=== PATIENT | male | born 1940 | race Caucasian/White ===

== ENCOUNTER → 2017-02-21 | Outpatient (CLI) | payer MEDICARE ==
[2017-02-21 10:33] LABS: CHLORIDE 107 MEQ/L (98-107); SODIUM (NA) 143 MEQ/L (136-145)
[2017-02-21 10:37] LABS: ANION GAP 9 MEQ/L (5-15); BICARBONATE 26.8 MEQ/L (21.0-32.0); GLUCOSE,FASTING 94 MG/DL (74-99)
[2017-02-21 10:38] LABS: BLOOD UREA NITROGEN 23 MG/DL (7-18)
[2017-02-21 10:40] LABS: ALT (GPT) 32 U/L (12-78); AST (GOT) 24 U/L (15-37)
[2017-02-21 10:41] LABS: GLOMERULAR FILTRATION RATE 65 ML/MIN (>89)
[2017-02-21 10:42] LABS: TOTAL BILIRUBIN ADULT 0.6 MG/DL (0.2-1.0)
[2017-02-21 10:43] LABS: ALKALINE PHOSPHATASE 59 U/L (45-117)
[2017-02-21 13:37] LABS: MEAN CELL VOLUME 85.2 FL (80.0-100.0); MEAN CORPUSCULAR HEMOGLOBIN 28.4 PG (27.0-34.0); MEAN CORPUSCULAR HGB CONC 33.4 % (32.0-36.0); PLATELET COUNT 224 TH/MM3 (150-450); RED BLOOD COUNT 4.81 MIL/MM3 (4.50-5.90); REVIEW FLAG FINAL; WHITE BLOOD COUNT 8.7 TH/MM3 (4.0-11.0)
== END ==
LOC: PLAB 08:56
PROVIDERS: ATTEND Family Medicine
DX: I12.9 Hypertensive chronic kidney disease with stage 1 through stage 4 chronic kidney disease, or unspecified chronic kidney disease (principal); N18.3 Chronic kidney disease, stage 3 (moderate)
CPT/HCPCS: 36415; 80053; 85027

== ENCOUNTER → 2017-08-04 | Outpatient (CLI) | payer MEDICARE ==
[2017-08-04 13:31] LABS: AUTOMATED NEUTROPHIL # 5.9 TH/MM3 (1.8-7.7); BASOPHIL # 0.1 TH/MM3 (0-0.2); BASOPHIL % 0.6 % (0.0-2.0); EOSINOPHIL # 0.3 TH/MM3 (0-0.4); EOSINOPHIL % 2.6 % (0.0-4.0); HEMATOCRIT 43.3 % (39.0-51.0); LYMPH % 27.2 % (9.0-44.0); LYMPHOCYTE # 2.8 TH/MM3 (1.0-4.8); MEAN CELL VOLUME 85.9 FL (80.0-100.0); MEAN CORPUSCULAR HGB CONC 33.7 % (32.0-36.0); MONO % 12.5 % (0.0-8.0); NEUT % 57.1 % (16.0-70.0); PLATELET COUNT 210 TH/MM3 (150-450); RED BLOOD COUNT 5.05 MIL/MM3 (4.50-5.90); RED CELL DISTRIBUTION WIDTH 15.4 % (11.6-17.2); WHITE BLOOD COUNT 10.3 TH/MM3 (4.0-11.0)
[2017-08-04 13:34] LABS: ANION GAP 5 MEQ/L (5-15); AST (GOT) 18 U/L (15-37); BICARBONATE 27.2 MEQ/L (21.0-32.0); BLOOD UREA NITROGEN 24 MG/DL (7-18); CHLORIDE 107 MEQ/L (98-107); GLOMERULAR FILTRATION RATE 58 ML/MIN (>89); GLUCOSE,FASTING 98 MG/DL (74-99); POTASSIUM 4.2 MEQ/L (3.5-5.1); SODIUM (NA) 139 MEQ/L (136-145)
[2017-08-04 13:36] LABS: ALKALINE PHOSPHATASE 76 U/L (45-117); ALT (GPT) 23 U/L (12-78); HDL CHOLESTEROL 30.8 MG/DL (40.0-60.0); TOTAL BILIRUBIN ADULT 0.4 MG/DL (0.2-1.0)
[2017-08-04 13:39] LABS: HEMO FLAGS AUTO DIFF
[2017-08-04 14:28] LABS: BANDS 5 % (0-6); BASOPHILS 1 % (0-2); EOSINOPHILS 1 % (0-4); METAMYELOCYTES 1 % (0-1); NEUTROPHIL # MANUAL DIFF 5.8 TH/MM3 (1.8-7.7); PLATELET ESTIMATE SMEAR NORMAL (NORMAL); PLATELET MORPHOLOGY NORMAL (NORMAL); POLYS (SEG NEUTROPHILS) 50 % (16-70); SCAN/DIFF FINAL DIFF MANUAL; WBC DIFF SAMPLE 100
== END ==
LOC: PLAB 09:02
PROVIDERS: ATTEND Family Medicine
DX: I10 Essential (primary) hypertension (principal); E78.5 Hyperlipidemia, unspecified
CPT/HCPCS: 36415; 80053; 80061; 85007; 85027

== ENCOUNTER → 2017-10-04 | Outpatient (CLI) | payer MEDICARE ==
[2017-10-04 09:30] LABS: BACTERIA, URINE RARE /hpf; BLOOD, URINE NEG (NEG); GLUCOSE,URINE NEG (NEG); HYALINE CAST, URINE 4 /lpf (RARE); KETONE, URINE NEG (NEG); MUCUS URINE FEW /lpf (OCC); NITRITE,URINE NEG (NEG); PH, URINE 5.5 (5.0-8.5); SQUAMOUS EPITHELIAL CELL URINE <1 /hpf (0-5); URINE COLOR YELLOW (YELLW/STRAW)
[2017-10-04 10:10] LABS: BICARBONATE 29.1 MEQ/L (21.0-32.0); POTASSIUM 4.7 MEQ/L (3.5-5.1)
== END ==
LOC: PLAB 07:34
PROVIDERS: ATTEND Family Medicine
DX: N18.3 Chronic kidney disease, stage 3 (moderate) (principal)
CPT/HCPCS: 36415; 80048; 81001; 82306; 82570; 83970; 84156

== ENCOUNTER → 2017-12-05 | Outpatient (CLI) | payer MEDICARE ==
[2017-12-05 11:13] LABS: COMPLEMENT C3 124 MG/DL (90-180); COMPLEMENT C4 33 MG/DL (10-40)
[2017-12-05 11:15] LABS: ALBUMIN 4.1 GM/DL (3.4-5.0); BICARBONATE 26.9 MEQ/L (21.0-32.0); CALCIUM 9.7 MG/DL (8.5-10.1); CREATININE 1.16 MG/DL (0.60-1.30); PHOSPHORUS 3.2 MG/DL (2.5-4.9)
[2017-12-05 11:18] LABS: BACTERIA, URINE OCC /hpf; BILIRUBIN, URINE NEG (NEG); BLOOD, URINE NEG (NEG); GLUCOSE,URINE NEG (NEG); HYALINE CAST, URINE 3 /lpf (RARE); KETONE, URINE NEG (NEG); MUCUS URINE FEW /lpf (OCC); NITRITE,URINE NEG (NEG); PH, URINE 5.5 (5.0-8.5); SQUAMOUS EPITHELIAL CELL URINE <1 /hpf (0-5); URINE COLOR YELLOW (YELLW/STRAW); URINE LEUKOCYTE ESTERASE SMALL (NEG)
[2017-12-05 11:20] LABS: BASOPHIL % 0.6 % (0.0-2.0); EOSINOPHIL # 0.2 TH/MM3 (0-0.4); EOSINOPHIL % 1.9 % (0.0-4.0); HEMATOCRIT 42.5 % (39.0-51.0); HEMOGLOBIN 14.6 GM/DL (13.0-17.0); LYMPH % 24.5 % (9.0-44.0); LYMPHOCYTE # 2.1 TH/MM3 (1.0-4.8); MEAN CELL VOLUME 85.1 FL (80.0-100.0); MEAN CORPUSCULAR HEMOGLOBIN 29.3 PG (27.0-34.0); MEAN CORPUSCULAR HGB CONC 34.4 % (32.0-36.0); MEAN PLATELET VOLUME 8.9 FL (7.0-11.0); MONO % 13.5 % (0.0-8.0); MONOCYTE # 1.1 TH/MM3 (0-0.9); NEUT % 59.5 % (16.0-70.0); PLATELET COUNT 212 TH/MM3 (150-450); RED BLOOD COUNT 4.99 MIL/MM3 (4.50-5.90); RED CELL DISTRIBUTION WIDTH 15.3 % (11.6-17.2); WHITE BLOOD COUNT 8.4 TH/MM3 (4.0-11.0)
[2017-12-05 17:47] LABS: KAPPA LAMBDA RATIO 2.11 (1.57-3.93)
[2017-12-05 21:18] LABS: ALB/GLOB RATIO (SPE) 1.54 (1.39-2.23)
[2017-12-07 23:52] LABS: KAPPA/LAMBDA FREE 1.65 (0.26-1.65)
== END ==
LOC: PLAB 12-01 07:50
PROVIDERS: ATTEND Internal Medicine Nephrology
DX: N18.2 Chronic kidney disease, stage 2 (mild) (principal)
CPT/HCPCS: 80069; 81001; 82570; 82575; 82784; 83883; 83970; 84156; 84157; 84165; 85025; 86160; 86162; 86334; 86335; 86803

== ENCOUNTER → 2017-12-26 | Outpatient (CLI) | payer MEDICARE ==
[2017-12-26 12:27] LABS: BILIRUBIN, URINE NEG (NEG); BLOOD, URINE TRACE (NEG); GLUCOSE,URINE NEG (NEG); KETONE, URINE NEG (NEG); MUCUS URINE FEW /lpf (OCC); NITRITE,URINE NEG (NEG); PH, URINE 5.5 (5.0-8.5); SQUAMOUS EPITHELIAL CELL URINE <1 /hpf (0-5); URINE COLOR YELLOW (YELLW/STRAW); URINE LEUKOCYTE ESTERASE SMALL (NEG)
== END ==
LOC: PLAB 10:34
PROVIDERS: ATTEND Family Medicine
DX: R30.0 Dysuria (principal)
CPT/HCPCS: 81001; 87086

== ENCOUNTER → 2018-01-10 | Outpatient (CLI) | payer MEDICARE ==
[2018-01-10 11:27] LABS: AUTOMATED NEUTROPHIL # 6.7 TH/MM3 (1.8-7.7); BASOPHIL % 0.3 % (0.0-2.0); EOSINOPHIL # 0.2 TH/MM3 (0-0.4); EOSINOPHIL % 1.5 % (0.0-4.0); HEMATOCRIT 41.5 % (39.0-51.0); LYMPH % 23.1 % (9.0-44.0); LYMPHOCYTE # 2.5 TH/MM3 (1.0-4.8); MEAN CELL VOLUME 84.8 FL (80.0-100.0); MEAN CORPUSCULAR HEMOGLOBIN 28.6 PG (27.0-34.0); MEAN CORPUSCULAR HGB CONC 33.7 % (32.0-36.0); MEAN PLATELET VOLUME 9.1 FL (7.0-11.0); MONO % 12.3 % (0.0-8.0); MONOCYTE # 1.3 TH/MM3 (0-0.9); NEUT % 62.8 % (16.0-70.0); PLATELET COUNT 234 TH/MM3 (150-450); WHITE BLOOD COUNT 10.6 TH/MM3 (4.0-11.0)
[2018-01-10 11:30] LABS: BACTERIA, URINE RARE /hpf; BILIRUBIN, URINE NEG (NEG); BLOOD, URINE NEG (NEG); GLUCOSE,URINE NEG (NEG); KETONE, URINE NEG (NEG); NITRITE,URINE NEG (NEG); PH, URINE 5.5 (5.0-8.5); URINE COLOR YELLOW (YELLW/STRAW); URINE LEUKOCYTE ESTERASE SMALL (NEG)
[2018-01-10 11:36] LABS: ALBUMIN 3.7 GM/DL (3.4-5.0); AST (GOT) 23 U/L (15-37); BICARBONATE 28.2 MEQ/L (21.0-32.0); BLOOD UREA NITROGEN 28 MG/DL (7-18); CALCIUM 9.1 MG/DL (8.5-10.1); CHLORIDE 103 MEQ/L (98-107); CREATININE 1.24 MG/DL (0.60-1.30); GLOMERULAR FILTRATION RATE 56 ML/MIN (>89); GLUCOSE,FASTING 91 MG/DL (74-99); SODIUM (NA) 141 MEQ/L (136-145)
[2018-01-10 11:37] LABS: CHOLESTEROL 144 MG/DL (120-200)
[2018-01-10 11:40] LABS: ALKALINE PHOSPHATASE 72 U/L (45-117); ALT (GPT) 22 U/L (12-78); CHOLESTEROL/ HDL RATIO 4.16 RATIO; HDL CHOLESTEROL 34.6 MG/DL (40.0-60.0); LDL CHOLESTEROL 79 MG/DL (0-99); LDL CHOLESTEROL DIRECT 88 MG/DL (0-99); TOTAL BILIRUBIN ADULT 0.5 MG/DL (0.2-1.0); TOTAL PROTEIN 7.7 GM/DL (6.4-8.2); TRIGLYCERIDES 154 MG/DL (42-150)
[2018-01-10 16:34] LABS: HEMOGLOBIN A1C 5.3 % (4.3-6.0)
== END ==
LOC: PLAB 08:06
PROVIDERS: ATTEND Physician Assistant
DX: I12.9 Hypertensive chronic kidney disease with stage 1 through stage 4 chronic kidney disease, or unspecified chronic kidney disease (principal); N18.3 Chronic kidney disease, stage 3 (moderate); E78.5 Hyperlipidemia, unspecified; R73.09 Other abnormal glucose; R39.9 Unspecified symptoms and signs involving the genitourinary system
CPT/HCPCS: 80053; 80061; 81001; 82306; 83036; 83721; 83970; 84100; 85025; 87086

== ENCOUNTER 2018-06-27 07:03 | Inpatient (IN) ==
[2018-06-27] MEDS ORDERED: Chlorhexidine Gluconate 2% 1 Pack (2 Cloths) TOPICAL SCH (07:30)
[2018-06-27] MEDS ORDERED: Metoprolol Tartrate 25 MG Tablet PO SCH (07:30)
[2018-06-27] MEDS ORDERED: Sodium Chlor 0.9% Inj 500 ML IV.SIG SCH (08:00)
--- NOTE | 2018-06-27 08:38 | P.PNVS ---
- Pre-operative Note Planned Procedure: EVAR Interval History: Pt has been feeling well, no changes that would preclude OR. Labs: Hct 44 plt 232 INR 1.1 creatinine 1.2 Blood: T&S Imaging: CTA reviewed Orders: NPO Ancef 2g IV OCTOR Post-operative Destination: PACU, then CPCU Operative site marked: No Consent: Informed consent has been obtained from Filomena Azevedo. I have explained the procedure in detail and discussed the risks, benefits, and potential complications. All questions have been answered. Patient Contact Information: ([place]) [phone]
[2018-06-27] MEDS ORDERED: Phenylephrine/NS 1000 MCG/10ML Syringe IV.PUSH ONE (08:47)
[2018-06-27] MEDS ORDERED: Lidocaine PF 1% Inj 5 ML Syringe INFILTRATN ONE (08:47)
[2018-06-27] MEDS ORDERED: Normosol-R pH 7.4 Inj 1,000 ML IV.CONT ONE (08:47)
[2018-06-27] MEDS: Heparin 10,000 UNITS/10 ML Vial (for IV use) ONE ×2 (09:36→09:40)
[2018-06-27] MEDS: Protamine Sulfate Inj 50 MG/5 ML Vial ONE ×2 (09:37→09:41)
[2018-06-27] MEDS: Heparin/NS PF Inj 500 ML ONE ×2 (09:37→10:02)
[2018-06-27] MEDS ORDERED: Sugammadex Inj 200 MG/2 ML Vial IV.PUSH ONE (10:14)
[2018-06-27] MEDS ORDERED: Iohexol 300 MG/ML 50 ML Vial (for Rad Diag) IVCONTRAST ONE ×2 (10:18→10:20)
--- NOTE | 2018-06-27 10:33 | P.OP ---
- Preoperative Diagnosis (1) AAA (abdominal aortic aneurysm) without rupture - Postoperative Diagnosis (1) AAA (abdominal aortic aneurysm) without rupture Date of procedure: 06/27/18 Procedure: 1. 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
[2018-06-27] MEDS ORDERED: Bisacodyl 10 MG Supp RECTAL PRN (10:34)
[2018-06-27] MEDS ORDERED: fentaNYL Citrate Inj 100 MCG/2 ML Ampul ONE (10:55)
[2018-06-27] MEDS ORDERED: *morphine SULFATE 4 MG/ML PERIprocedure ONLY ONE (11:04)
--- NOTE | 2018-06-27 13:14 | MP ---
cc: Bao Jose MD DATE OF OPERATION: 06/27/2018 PREOPERATIVE DIAGNOSIS: Abdominal aortic aneurysm. POSTOPERATIVE DIAGNOSIS: Abdominal aortic aneurysm. PROCEDURE PERFORMED: 1. Endovascular abdominal aortic aneurysm exclusion. 2. Bilateral common femoral artery access (right 18 Panamanian, left 16 Panamanian). ATTENDING SURGEON: Bao Jose MD ANESTHESIA: General. 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 He is taken to the operating room for endovascular repair. DESCRIPTION OF PROCEDURE: Informed consent was obtained. The patient was taken to the operating room and placed supine on the operating table. An appropriate timeout was taken to ensure the patient's identity, the operative site and planned procedure. Two grams of Ancef were administered prior to skin incision and will be discontinued after a single preoperative dose. Everyone in the room agreed with the timeout and we proceeded. He was prepped from his nipples to the knees. A 21 gauge micropuncture needle was used to access both common femoral arteries. This was exchanged using the Seldinger technique for a micropuncture sheath, through which a 0.05 STORQ wire was introduced. The micropuncture sheath was exchanged for a 5 Panamanian sheath, which was used to dilate the skin, subcutaneous tract and arteriotomy. Two Perclose ProGlide sutures were inserted into each groin and tagged. A short 8 Panamanian sheath was placed on the right and a long 8 Panamanian sheath was placed on the left. The patient was systemically heparinized and throughout the remainder of the case, the ACT was confirmed to be greater than 250. Both STORQ wires were advanced into the proximal descending thoracic aorta. Into the left-hand STORQ wire, a marker flush catheter was placed. Into the right-hand STORQ wire, a catheter was used to exchange the STORQ for a Lunderquist. The 8 Panamanian sheath on the right was removed. Livier dilators were used to dilate the skin, subcutaneous tract and arteriotomy. The main device, which was a Cook ZenHungry Local 24 x 96, was introduced, oriented appropriately and placed approximately at the level of the renal arteries. An angiogram was performed, which located the renal arteries, and the device was deployed down to the contralateral gate. An interval angiogram was performed to locate the renal arteries. The top cap and bare-metal spring were deployed. A Roadrunner wire was then placed through the marker flush catheter on the left and the marker flush was exchanged for a Cobra catheter. The Roadrunner was ultimately exchanged for a glide and then a STORQ, which was used to cannulate the contralateral gate and the catheter was advanced over this. Angiogram confirmed were indeed in the contralateral gate. A Lunderquist wire was then placed through this up to the proximal descending thoracic aorta and the catheter was exchanged for a marker flush catheter. An angiogram was performed, which located the left hypogastric artery and the contralateral limb, which a 16 x 74 was introduced. Prior to doing this, the 8 Panamanian sheath was removed. Livier dilators were used to dilate the skin, subcutaneous tract and arteriotomy in the left side, which the graft through a 16 Panamanian sheath was then placed and deployed so the distal aspect of the limb was proximal to the hypogastric artery. This provided sufficient overlap. The delivery system was removed, leaving a [address] The remainder of the main device was deployed. The top cap was recaptured and a marker catheter was placed through the 20 Panamanian sheath on the right. This was used to locate the right hypogastric artery and the ipsilateral limb, which a 20 x 56 was introduced with sufficient overlap and deployed without difficulty. A Coda balloon was used to balloon the proximal and distal as well as gap junction. A completion angiogram showed excellent opacification of both renal arteries, both hypogastric arteries and what appeared to be a type 2 endoleak. The wire, catheter and sheath were removed and the Percloses were tied down, providing hemostasis in the groin. Manual pressure was held. There were Doppler signals in the feet. The heparin was reversed with protamine. The wounds were closed with 4-0 Monocryl. Sponge and needle counts were correct at the end of the case. I was present, scrubbed and performed the entire procedure. MD BRIANNA Barrera/tiffany , 11:52 AM , 12:01 PM
[2018-06-27] MEDS ORDERED: IPRATROPIUM BROMIDE NASAL SCH (21:00)
[2018-06-27] MEDS: Senna/Docusate Sodium 8.6/50 MG Tablet PO SCH (21:36)
[2018-06-28 04:33] LABS: Hematocrit 42.3 % (39.0-51.0); Mean Corpuscular HGB Conc 33.2 % (32.0-36.0); Mean Corpuscular Hemoglobin 28.7 pg (27.0-34.0); Mean Corpuscular Volume 86.5 fL (80.0-100.0); Mean Platelet Volume 9.3 fL (7.0-11.0); Platelet Count 202 th/mm3 (150-450); Red Blood Count 4.88 mil/mm3 (4.50-5.90); Red Cell Distribution Width 14.9 % (11.6-17.2); White Blood Count 22.8 th/mm3 (4.0-11.0)
[2018-06-28 04:52] LABS: Calcium 8.5 mg/dL (8.5-10.1); Carbon Dioxide 25.8 meq/L (21.0-32.0); Potassium 4.1 meq/L (3.5-5.1)
--- NOTE | 2018-06-28 07:48 | P.PNVS ---
Subjective Post Op Day #: 1 Procedure: EVAR Subjective/Hospital Course: looks great, no pain except mild discomfort of groin brandan po voiding Objective Vital Signs / I&O: Vital Signs 06/27/18 10:46 06/27/18 11:00 06/27/18 11:15 Temperature 98.1 F Pulse Rate 88 81 76 Respiratory Rate 16 16 16 Blood Pressure 123/66 133/75 141/82 H Pulse Oximetry 98 98 98 06/27/18 12:21 06/27/18 13:00 06/27/18 13:35 Temperature 97.3 F L Pulse Rate 88 63 Respiratory Rate 16 16 Blood Pressure 145/80 H 158/90 H Pulse Oximetry 97 98 98 06/27/18 15:00 06/27/18 19:00 06/27/18 22:00 Temperature 97.5 F L 98.9 F Pulse Rate 89 95 H Respiratory Rate 16 16 Blood Pressure 147/90 H 159/97 H Pulse Oximetry 97 93 L 96 06/27/18 23:00 06/28/18 03:00 06/28/18 06:05 Temperature 98.7 F 98.1 F Pulse Rate 98 H 80 70 Respiratory Rate 16 14 Blood Pressure 136/85 144/82 H Pulse Oximetry 93 L 96 Intake & Output 06/27/18 06/28/18 06/28/18 18:59 06:59 18:59 Intake Total 1979 720 / 720 Output Total 1230 / 1230 800 / 800 Balance 750 / 750 -80 / -80 Weight 94.6 kg 94 kg Intake: IV 1000 / 1000 Heparin/NS PF Inj 500 ML @ 0 0 / 0 mls/hr .ROUTE .STK-MED ONE Rx#: [id number] LR 1000 mL Inj 1,000 ML @ 30 1000 / 1000 mls/hr IV.SIG .Q24H [facility] Rx#: [id number] Oral 280 / 280 720 / 720 Anesthesia Amount 700 / 700 Output: Urine 800 / 800 Estimated Blood Loss 50 / 50 Urine Amount (Catheter) 1180 / 1180 Indwelling Urethral Catheter 1180 / 1180 Other: # Voids 1 # Bowel Movements 0 Weight On Admission 94.6 kg Exam: sitting in bed, comfortable palpable pulses, B LE groins ok, R groin ecchymotic Laboratory Results - last 24 hr 06/27/18 06/28/18 06/28/18 07:36 03:45 03:45 WBC 22.8 H RBC 4.88 Hgb 14.0 Hct 42.3 MCV 86.5 MCH 28.7 MCHC 33.2 RDW 14.9 Plt Count 202 MPV 9.3 Sodium 141 Potassium 4.1 Chloride 107 Carbon Dioxide 25.8 Anion Gap 8 BUN 23 H Creatinine 1.05 Estimated GFR 68 L Random Glucose 117 H Calcium 8.5 Blood Type B Positive Blood Type Recheck Required Antibody Screen Negative Assessment and Plan - Assessment (1) AAA (abdominal aortic aneurysm) without rupture Code(s): I71.4 - Abdominal aortic aneurysm, without rupture Status: Acute - Plan POD#1 s/p EVAR Looks great, feels well ready for d/c Discharge Planning: today RTC 1m with CTA A/P
[2018-06-28] MEDS: Senna/Docusate Sodium 8.6/50 MG Tablet PO SCH (08:32)
[2018-06-28] MEDS ORDERED: Aspirin 325 MG Tablet PO SCH (09:00)
[2018-06-28] MEDS ORDERED: Lisinopril 10 MG Tablet PO SCH (09:00)
[2018-06-28] MEDS ORDERED: Finasteride 5 MG Tablet PO SCH (09:00)
--- NOTE | 2018-06-28 09:39 | P.DS ---
Discharge Summary - Admission Date 06/27/18 07:03 - Admission Diagnosis (1) AAA (abdominal aortic aneurysm) without rupture - Discharge Date 06/28/18 - Discharge Diagnosis (1) History of repair of aneurysm of abdominal aorta using endovascular stent graft Status: Acute (2) AAA (abdominal aortic aneurysm) without rupture Status: Acute - Summary Brief History from admission: 78/M hx of AAA Procedure: EVAR Significant Findings: Alert in NAD,GCS 15, Speech Clear Pt w/o abdominal/back pain Palpable distal pulses noted (2+ DP) B groins S/NT w/o swelling or hematoma Mild ecchymosis to R groin Abnormal Lab Results 06/28/18 06/28/18 03:45 03:45 WBC 22.8 H RBC 4.88 Hgb 14.0 Hct 42.3 MCV 86.5 MCH 28.7 MCHC 33.2 RDW 14.9 Plt Count 202 MPV 9.3 Sodium 141 Potassium 4.1 Chloride 107 Carbon Dioxide 25.8 Anion Gap 8 BUN 23 H Creatinine 1.05 Estimated GFR 68 L Random Glucose 117 H Calcium 8.5 Hospital Course: 78/M w/a PMH AAA S/P EVAR POD 1 Looks good w/o complaints of abdominal/back pain Palpable distal pulses noted LE warm w/ motor intact Pt clear for D/C E force reviewed - 3D pain medication Rx for post operative pain Arranged f/u in 1M with a surveillance CTA post EVAR - Discharge Instructions Any questions or concerns: Call [facility] at [facility] [phone] Discharge Plan - Discharge Disposition Patient Disposition: 01 Discharge Home - Discharge Condition Condition: Good - Discharge Order Discharge Orders: Discharge Order (Routine); Ordered 06/28/18 Ordered By: Stephanie Ignacio - Physicians Team Primary Care Provider: Lonnie Martinez Attending Provider: Bao Jose Other Providers: [facility],Agency - Rxs /Orders / Referrals /Forms Prescriptions: New aspirin [Adult Low Dose Aspirin] 81 mg Tablet,Delayed Release (Dr/Ec) 81 mg PO DAILY Qty: 30 RF: 6 oxycodone-acetaminophen [Percocet] 5-325 mg Tablet 1 tab PO Q4-6H PRN (Reason: Pain) Qty: 20 RF: 0 Continue cholecalciferol (vitamin D3) [Vitamin D3] 2,000 unit Capsule 2,000 unit PO DAILY finasteride [Proscar] 5 mg Tablet 5 mg PO DAILY ipratropium bromide 0.03 % Ventura,Non-Aerosol 2 spray INTRANASAL BID lisinopril 10 mg Tablet 10 mg PO DAILY metoprolol succinate 100 mg Tablet Extended Release 24 Hr 100 mg PO DAILY mometasone [Nasonex] 50 mcg/actuation Ventura,Non-Aerosol 1 spray INTRANASAL DAILY rosuvastatin [Crestor] 10 mg Tablet 10 mg PO DAILY tamsulosin 0.4 mg Capsule,Extended Release 24hr 0.4 mg PO DAILY Referrals: Lonnie Martinez MD [Primary Care Provider] - See Instructions Bao Jose MD [Physician] - See Instructions (Your Post Operative Follow Up is scheduled on 07/26/18 at 1:15 w/ a surveillance CTA A/P (obtain prior to post op appointment) ) - Post Discharge Care Plan Care Plan Goals: Discharge Care Plan Goals for AAA S/P Endovascular Aneurysm Repair Directions to Meet your Goals: 1. Pain Relief: You will recover faster after surgery if your pain is kept under control: * Take pain medicine as directed by your doctor. 2. Activity: * Dont drive until your doctor says its OK. And never drive while taking opioid pain medicine. * Ask someone to stand nearby while you shower or do other activities, just in case you need help. Activities as tolerated 3. Diet and Exercise: * Maintain a healthy weight. If needed, get help to loose extra pounds. * Avoid fatty and fried foods. Stick to lean meats, such as chicken or fish. * Cut back on salt: - Limit canned, dried, packaged, and fast foods. - Dont add salt to your food at the table. - Season foods with herbs instead of salt when you cook * Ask your healthcare provider when you can start a walking program: - If you havent already started a walking program in the hospital, begin with short walks (about 5 minutes) at home. Go a little longer each day. - Choose a safe place with a level surface, such as a local park or mall. - Wear supportive shoes to prevent injury to your knees and ankles. - Walk with someone. Its more fun and helps you stay with it. 4. Prevent Falls/Injury: * If you are unstable on your feet, remember to ask for help from others. * Avoid using very hot water while showering. It can affect your circulation and make you dizzy. * Free up your hands so that you can use them to keep balance. Use a hardik pack , apron, or pockets to carry things. * Arrange your household to keep the items you need handy. Keep everything else out of the way. * Remove items that may cause you to fall, such as throw rugs and electrical cords. * Use nonslip bath mats, grab bars, an elevated toilet seat, and a shower chair in your bathroom * Sit on a shower stool or chair when you shower to keep from falling. 5. Incision Care: * Check your bilateral groins daily for redness, swelling, tenderness, or drainage. * Prevent infection by washing your hands often. If an infection occurs, it will need to be treated right away. * Call your doctor right away if you think you may have an infection. Symptoms include a fever or an incision that leaks white, green, or yellow fluid. * Don't soak your incision in water until your doctor says its OK. This means no hot tubs, bathtubs, or swimming pools. * Dont rub the incision, or apply creams or lotions to it. Leave your incisions/puncture wounds open to air 6. Follow-Up: Do Not miss your follow-up appointment. Keep up with all your appointments and yearly check ups When to call your doctor: Call your doctor right away if you have: Fever of 100.4F (38C) or higher, or as directed by your doctor Signs of infection (redness, swelling, drainage, or warmth) at the incision site Unrelieved pain at the incision site(s) Changes in the location, type, or severity of pain Persistent abdominal pain Nausea Trouble urinating Any unusual bleeding
[2018-06-28] MEDS ORDERED: Enoxaparin Inj 40 MG/0.4 ML Syringe SQ SCH (10:00)
== END 2018-06-28 10:15 | disposition home or self-care (01) ==
LOC: HSDI 07:03 → HCVI 12:20 → HCPC 06-28 04:57
PROVIDERS: ADMIT Surgery; ATTEND Surgery
DX: I71.4 Abdominal aortic aneurysm, without rupture